=== PATIENT | male | born 1960 | race Caucasian/White ===

== ENCOUNTER → 2016-07-28 | Outpatient (CLI) | payer BC ==
[~2016-07-28] MED LIST: GADAVIST IV PRN; PARO1TAB27; RISP1TAB68
--- NOTE | 2016-07-28 15:53 | DIAGNOSTIC IMAGING REPORT ---
BONY ORBITS 3 VIEWS CLINICAL HISTORY: MRI clearance. FINDINGS: 3 views of the bony orbits are obtained. No prior studies are available for comparison at the time of dictation. There is no radiodense/metallic foreign body seen in the region of the bony orbits. The bony orbits are intact as imaged. The visualized paranasal sinuses and the mastoid air cells appear clear. The imaged calvarium appears intact. IMPRESSION: There is no radiodense/metallic foreign body seen in the region of the bony orbits. Electronically signed by: Benjy Moses M.D. 07/28/2016 3:52 PM Dictated Date/Time: 07/28/2016 3:51 PM
--- NOTE | 2016-07-28 20:20 | DIAGNOSTIC IMAGING REPORT ---
LEFT FOOT MRI WITH AND WITHOUT INTRAVENOUS CONTRAST HISTORY: Left foot mass TECHNIQUE: Multiplanar multisequence MRI of the left foot was performed both before and after the intravenous administration of contrast. COMPARISON STUDY: None. FINDINGS: Within the medial aspect of the plantar aponeurosis at the level of the tarsometatarsal joints there is a T1 hypointense, T2 isointense lobular lesion which demonstrates enhancement. This measures approximate 4.8 x 3.3 x 1.7 cm. This abuts and slightly displaces the adjacent plantar muscles but does not appear to invade into the muscles. No fracture or dislocation within the foot. There appears to be old postoperative changes within the medial aspect of the heel. This is demonstrate by a focal skin incision and underlying linear scar like areas. IMPRESSION: A 4.8 x 3.3 x 1.7 cm mass within the medial aspect of the plantar aponeurosis. This most likely represents plantar fibromatosis. Surgical excision can be performed for further evaluation. Electronically signed by: Raleigh Stroud M.D. 07/28/2016 8:18 PM Dictated Date/Time: 07/28/2016 8:10 PM
== END | disposition home or self-care (01) ==
LOC: C.MRI 15:18
PROVIDERS: ATTEND Podiatrist Foot & Ankle Surgery
DX: M77.32 Calcaneal spur, left foot (principal)

== ENCOUNTER 2017-10-16 04:56 | Observation (INO) | payer BC ==
[2017-10-15 08:58] VITALS: BMI 35.0
--- NOTE | 2017-10-15 12:11 | HISTORY & PHYSICAL EXAMINATION ---
DATE OF ADMISSION: 10/16/2017 HISTORY OF PRESENT ILLNESS: A 57-year-old male presents for a followup preoperative evaluation requesting surgery to his left foot. Pain is located in the foot and the heel. Severity of condition is graded as a 7 or an 8 on a 10 point scale. Pain described as aching, numbness, severe sharp soreness, and tingling. His condition was first noted several years ago. He notes associated signs and symptoms including aching, numbness, and tingling. He indicates that he has had heel pain in his foot for many years, even after having 2 surgeries done already on his foot for mass removal. Previously had surgery by Dr. Luna in 1998 and by me in 2001 and notes that he is unsure when the mass has started to return following the 2001 surgery. He has more pain by his foot by the end of the day. Past treatment and tests include MRIs, accommodative padding, accommodative shoes, oral medications, physical therapy, and surgery. We discussed the plantar spur, that it usually goes away with conservative treatment, but patient states "I just want this bur gone when the masses are removed." He is requesting removal of the painful skin over his heel as well. Due to severe discomfort, he would like to proceed with surgical intervention versus conservative care. PAST SURGICAL HISTORY: Multiple foot surgeries. PAST MEDICAL HISTORY: Arthritis. MEDICATIONS: None. ALLERGIES: No known medical allergies. FAMILY HISTORY: Diabetes and heart attack. SOCIAL HISTORY: Tobacco use: Relates a smoking history of 40 pack, 2 years. Patient admits to alcohol use, drinking described as social. REVIEW OF SYSTEMS: Unremarkable except chief complaint. PHYSICAL EXAMINATION: VITAL SIGNS: BP 120/78. Height 5 feet 10, weight 245 pounds, body mass index 35. CONSTITUTIONAL: Patient appears well-developed, well nourished. Good attention, body grooming, and habitus. HEENT: Head is normocephalic and atraumatic, without any gross head, face, or neck masses. Eyes: Conjunctival and pupils to light and accommodation normal. Ears, nose, mouth, and throat unremarkable. NECK: Supple. Trachea is midline, without any adenopathy or crepitance palpable. CARDIOVASCULAR: Normal S1 and S2, without murmur, gallops, rubs, clicks noted. Exam is normal. RESPIRATORY: Chest is symmetric. No scars are visible. No port or pacemaker is noted. Lungs are clear to auscultation bilaterally equal. GASTROINTESTINAL: Abdominal organs, bladder, and kidney show no abnormalities, masses, tenderness, or rigidity. LOWER EXTREMITY EXAMINATION: Vascular: Bilateral posterior tibial and dorsalis pedis pulses are palpable. Dermatologic: Inspection on palpation of plantar aspect, left arch, 4.3 x 2.5 cutaneous vascular lesions are observed. Plantar proximal aspect of left heel demonstrates lesions that are calloused, showing interruption of skin tension lines and exhibiting interruptions of skin lines. Neurological: Touch, pin, vibratory, and proprioception sensations are normal. Deep tendon reflexes normal. Musculoskeletal: Muscle tone is normal. Muscle strength is 5/5 in all groups tested. Inspection and palpation of bones, joints, and muscles show exostosis. First metatarsophalangeal joint shows evidence of range of motion limited in large dorsal medial eminence on the right. Examination of the heel shows moderate pain over the plantar medial aspect of the calcaneus on the left. Decreased ankle joint range of motion with the knee flexed and extended. LABORATORY DATA: Blood work on 07/21/2016 shows [place], CBC, and rheumatoid factors within normal limits. Sedimentation rate is 31. HLA-B27 is not detected. MRI of 08/29/2017 show there are no areas of marrow replacement to indicate neoplasm. There are no areas of edema to indicate outcome of fracture. Small Achilles insertional plantar calcaneal spurs, no evidence of tendinopathy, persistent 4.8 x 3 x 2 mm mass within the medial aspect of the plantar aponeurosis. Location of the signal characteristics are again suggestive of plantar fibromatosis. Biopsy could be performed for tissue confirmation. IMPRESSION: 1. Hallux limitus, right. 2. Heel spur syndrome, left. 3. Equinus bilaterally. 4. Plantar fibromatosis, left. 5. Skin lesions, benign, left. 6. Difficulty walking. 7. Status post excision of plantar mass with plantar fascia excision on the right by Dr. Luna in 1998 and excision of plantar mass with plantar fascia excision in 2001. PLAN: Surgical procedures to be performed: 1. Plantar fasciotomy with open heel spur resection to the left. 2. Excision of mass tumor in the mid foot, left x2. 3. Excision of benign lesion on the left heel. 4. Destruction of cutaneous vascular lesions, left foot. These would be performed under local with IV sedation as an outpatient at the hospital. Procedure, risks, and complications were fully reviewed with the patient. Consent form and foot diagram and illustration reviewed all in entirety. All the patient's questions were answered. Complications discussed in detail with the patient including pain, infection, swelling that may or may not be excessive, pins and needle feeling, numbness, metatarsalgia, excessive bleeding, delayed or nonhealing skin, enlarged scar, failure of the procedure, recurrence or worsening condition which may or may not require further surgery, adverse reaction to anesthesia, allergic reaction to suture or other implant material, loss of toe, foot, or leg, flail toe, stiff toe, short toe, elevated toe, transfer lesion or callus, peripheral neurovascular complications such as phlebitis, damage to nerves or vascular structures, significant chronic pain, chronic nerve pain or damage, general medical complications. Patient will be required to be nonweightbearing for a minimum of 3 weeks and not return to dress shoe for 6-12 weeks depending on the postop edema. Patient is aware this is an elective procedure and I recommend second opinion. Patient stated they understood. Consent form was signed with copy of foot diagram issued to the patient. Verbal and written postop instructions were given. Patient will be required to be nonweightbearing for a minimum of 3 weeks and not return to dress shoe for 6-12 weeks depending on the postop edema. Plantar proximal aspect of lesions on the left heel debridement to pinpoint bleeding, application of salicylic acid at the time of the preoperative visit. Also, at the time of the preoperative visit, prescriptions for Percocet and Keflex were dispensed.
[~2017-10-16] VITALS: Ht 177.8 cm; Wt 111.4 kg
[2017-10-16] VITALS (9 sets, daily range): BP systolic 101–139; BP diastolic 61–86; PULSE 60–89; TEMP 35.9–36.8; O2SAT 94–96; Ht 177.8 cm; Wt 111.4 kg
[~2017-10-16 04:56] MED LIST changes: -GADAVIST IV PRN; +LACTATED RINGER'S 1000ML 1,000 ML IV SCH; -PARO1TAB27; -RISP1TAB68
[2017-10-16 05:53] LABS: HEMATOCRIT 43.1 % (42-52); HEMOGLOBIN 15.2 g/dL (14.0-18.0); MEAN CELL VOLUME 91.3 fL (80-100); MEAN CORPUSCULAR HEMOGLOBIN 32.2 pg (25-34); MEAN PLATELET VOLUME 10.1 fL (7.4-10.4); PLATELET COUNT 211 K/uL (130-400); RED CELL DISTRIBUTION WIDTH CV 12.9 % (11.5-14.5); RED CELL DISTRIBUTION WIDTH SD 43.1 fL (36.4-46.3); WHITE BLOOD COUNT 7.65 K/uL (4.8-10.8)
[2017-10-16 05:57] LABS: MEAN CORPUSCULAR HGB CONC 35.3 g/dl (32-36)
[2017-10-16] MEDS ORDERED: LACTATED RINGER'S 1000ML 1,000 ML IV SCH (06:00)
[2017-10-16] MEDS ORDERED: CEFAZOLIN 2000MG IV PUSH 15 ML IV SCH (06:00)
[2017-10-16] MEDS ORDERED: ROPIVACAINE 0.5% 5 MG/ML 30 ML VIAL ONE (06:28)
[2017-10-16] MEDS ORDERED: MIDAZOLAM HCL 1 MG/ML 2ML VIAL ONE ×2 (06:37)
[2017-10-16] MEDS ORDERED: FENTANYL CITRATE INJ 50 MCG/1 ML 2 ML VIAL ONE ×3 (06:38→09:53)
--- NOTE | 2017-10-16 06:45 | History & Physical Bridge Note ---
H&P Re-Evaluation Bridge Note: I have examined the patient, reviewed the History & Physical and in the interval since the performance of the History & Physical I have noted the following changes of clinical significance: No changes noted
[2017-10-16] MEDS ORDERED: LIDOCAINE HCL 2% 2 ML VIAL (20MG/ML) ONE (07:47)
[2017-10-16] MEDS ORDERED: PROPOFOL IV EMULSION 10 MG/ML 20 ML VIAL ONE (07:47)
[2017-10-16] MEDS ORDERED: DEXAMETHASONE SOD INJ 4 MG/ML VIAL ONE (07:53)
[2017-10-16] MEDS ORDERED: IV FLUIDS COMPLETED PRN (08:30)
[2017-10-16] MEDS ORDERED: ONDANSETRON INJ 2 MG/ML 2 ML VIAL ONE (09:13)
[2017-10-16] MEDS ORDERED: ATROPINE SULFATE 0.1 MG/ML 5ML SYR IV PRN (09:15)
[2017-10-16] MEDS ORDERED: EpHEDrine SULFATE INJ 50 MG/ML AMP IV PRN (09:15)
[2017-10-16] MEDS ORDERED: ONDANSETRON INJ 2 MG/ML 2 ML VIAL IV PRN (09:15)
[2017-10-16] MEDS ORDERED: PHENYLEPHRINE 100MCG/ML 5ML SYR IV PRN (09:15)
[2017-10-16] MEDS ORDERED: GELATIN SPONGE 12-7MM ONE (09:17)
--- NOTE | 2017-10-16 10:01 | [facility] Post Operative Brief Note ---
Immediate Operative Summary Operative Date Oct 16, 2017. Pre-Operative Diagnosis 1. Plantarfascitis 2. Heel spur syndrome, left. 3. Equinus bilaterally. 4. Benign lesions >15 L 5. Tumor X2 L 4. Plantar fibromatosis, left. 5. Skin lesions, benign, left. Post-Operative Diagnosis same as above Procedure(s) Performed Plantar Fasciotomy with Open Heel Spur Resection Left, Excision Mass/Tumor Left Midfoot X2 , Partial excision cutaneous vasulcar Lesions Excision Left X5, Destruction of premalignant lesion Lower Extremity>[address] Godoy Belt Measurer Surgeon(s) none Estimated Blood Loss 8 ml Findings Consistent with Post-Op Diagnosis Specimens Permanent 1. planter fascia 2. calcaneous bone 3. cutaneous premalignant lesions 4. tumor Anesthesia Type General Regional
[2017-10-16] MEDS: HYDROmorphone INJ 0.5 MG/0.5 ML SYR IV PRN ×6 (10:11→10:36)
--- NOTE | 2017-10-16 11:19 | DIAGNOSTIC IMAGING REPORT ---
L FOOT MIN 3 VIEWS ROUTINE CLINICAL HISTORY: Postoperative evaluation. COMPARISON: Left foot fluoroscopic images October 16, 2017 and MRI of the left foot August 29, 2017. FINDINGS: Fine detail is diminished due to overlying bandages/cast. Tarsometatarsal joints are intact. There is no acute fracture. A surgical drain is in place. Note is made of a punctate radiodensity which projects over the plantar aspect of the left midfoot. Extensive posterior calcaneal spurring is noted. Postoperative findings within the plantar aspect of the left hindfoot and midfoot are noted. IMPRESSION: 1. Surgical drain in place. Punctate radiodensity projecting over the plantar aspect of the left midfoot. This may be on or within the patient could be correlated with surgical procedure. 2. No acute fracture. Electronically signed by: Nicolas Jauregui M.D. 10/16/2017 11:18 AM Dictated Date/Time: 10/16/2017 11:14 AM
--- NOTE | 2017-10-16 12:10 | DIAGNOSTIC IMAGING REPORT ---
L FOOT 2 VIEWS CLINICAL HISTORY: LT PLANTAR FASCIOTOMY AND MASS REMOVAL COMPARISON: None. DISCUSSION: 17 seconds image intensifier time for intraoperative evaluation. Expected soft tissue postoperative change. Images suggests resection heel spur. 2 images acquired. IMPRESSION: Heel spur resection. The above report was generated using voice recognition software. It may contain grammatical, syntax or spelling errors. Electronically signed by: Brian Patricio M.D. 10/16/2017 12:08 PM Dictated Date/Time: 10/16/2017 12:08 PM
--- NOTE | 2017-10-16 12:15 | Anesthesiology Progress Note ---
Anesthesia Post Op Note Date & Time Oct 16, 2017 at 12:05 Vital Signs Pain Intensity: 1 Vital Signs Past 12 Hours Date Time Temp Pulse Resp B/P (MAP) Pulse Ox O2 Delivery O2 Flow Rate FiO2 10/16/17 11:50 75 12 108/79 93 Nasal Cannula 2 10/16/17 11:40 72 14 123/68 94 Nasal Cannula 2 10/16/17 11:30 70 12 117/79 93 Nasal Cannula 2 10/16/17 11:20 72 16 128/77 92 Nasal Cannula 2 10/16/17 11:10 74 16 130/74 94 Nasal Cannula 2 10/16/17 11:00 68 19 110/74 94 Nasal Cannula 3 10/16/17 10:50 71 14 113/80 92 Nasal Cannula 3 10/16/17 10:40 84 14 134/86 91 Nasal Cannula 3 10/16/17 10:30 73 14 129/84 91 Nasal Cannula 3 10/16/17 10:20 87 16 131/89 93 Nasal Cannula 3 10/16/17 10:10 86 14 115/78 91 Nasal Cannula 3 10/16/17 10:04 36.8 93 14 147/88 92 Nasal Cannula 3 10/16/17 05:39 36.8 78 20 139/86 (103) 95 Room Air Notes Mental Status: alert / awake / arousable, participated in evaluation Pt Amnestic to Procedure: Yes Nausea / Vomiting: adequately controlled Pain: adequately controlled Airway Patency, RR, SpO2: stable & adequate BP & HR: stable & adequate Hydration State: stable & adequate Anesthetic Complications: no major complications apparent The patient was very comfortable in the PACU. H was given a total of 3 mg of dilaudid because he kept asking for more. His respiratory rate dropped to 6 and he slept for a couple of hours just waking up momentarily at lengthy intervals. I do not believe that he needs a SLOPE HOIST OPERATOR at this point but I instructed nursing to tell the floor that if he does need one I will write the orders for it. He was sent to the floor on 3 liters nasal cannula and a bedside pulse oximeter.
--- NOTE | 2017-10-16 13:18 | OPERATIVE REPORT ---
DATE OF OPERATION: 10/16/2017 PREOPERATIVE DIAGNOSES: 1. Heel spur syndrome, left. 2. Plantar fasciitis, left. 3. Tumor, mid foot, left x2. 4. Benign cutaneous vascular lesions, left. POSTOPERATIVE DIAGNOSES: Same. ANESTHESIA: General with regional field block performed by the anesthesia department. HEMOSTASIS: Pneumatic calf tourniquet inflated to 300 mmHg for a total tourniquet time 106 minutes. ESTIMATED BLOOD LOSS: 8 mL. MATERIALS: 2-0 and 3-0 Vicryls, 2-0 and 4-0 nylon, 5-0 PDS. INJECTABLES: None. FINDINGS: A large 2-lobulated tumor that had scarred into 1 large tumor mass. Large exostosis, plantar calcaneus with scarred in plantar fascia band, and cutaneous vascular lesions involving the epidermis and dermal layers only. HISTOPATHOLOGY: Tumor was sent, cutaneous vascular lesions sent, bone sent, and plantar fascia sent. PROCEDURES: 1. Excision of tumor, deep x2. 2. Plantar fasciotomy, left. 3. Open heel spur ostectomy, the calcaneus, left. 4. Partial lesion excision, benign lesions to the depth of 1.2 x 5. 5. Cutaneous or premalignant cutaneous vascular lesions. PROCEDURE: The patient was brought to the OR and placed on the OR table in supine position. Upon completion of general anesthesia, a regional field block was performed by the anesthesia department. The left foot and leg were scrubbed , prepped, and draped in the usual aseptic fashion. Prior to this, a well- padded calf tourniquet was applied to the left lower extremity. The extremity was scrubbed, prepped, and draped in the usual aseptic fashion. Attention was directed to the plantar calcaneus where medially between the interruption of skin tension lines and plantar surface of the skin, was carefully drawn out from preoperative x-rays 6 cm distal to the calcaneus. Incision was made directly medially, was carried down to the level of the prominent bone. The plantar fascia was quite scarred and the plantar fascia was cut and removed from the attachment to the calcaneus and sent to histopathology. It should be noted there was small amount of bone that was in this as well that was sent. Using a sagittal saw and osteotome and a mallet, an ostectomy was created in the calcaneus over the plantar medial tubercle of the calcaneus. Care was taken to preserve for any bony spicules, none were noted. Fluoroscan was used to examine postoperatively. There was no prominent bone remaining. At this time, the wound was copiously lavaged over this area and this area was sent to histopathology. Attention was then directed into 5 areas of cluster lesions around the foot cutaneous vascular lesions. Partial excision was performed in these areas for the purpose of biopsy and sent to the lab. It should be noted it only involved the epidermis and dermal layers, was not extending into the fat layer. These remaining areas of the cluster lesions were burned using a cautery and a smoke evacuator. These areas were packed with Gelfoam. Attention was then directed to the plantar medial mid foot where a curvilinear incision was made over the tumor. This was carried down and appeared to be 2 lobulated tumors; however we got down further and this was all scarred and appeared to be connected to the plantar fascia, was not involved in the fat of the muscular layer. This was sent to histopathology. Wound was copiously lavaged with normal saline. Closure began in the deep structures using 2-0 Vicryl. Superficial deep structures were closed using 2-0 nylon, 5-0 PDS and 2- 0 and 4-0 nylon. It should be noted, a 10 gauge drain was placed over the area. Dry sterile compressive dressings consisting of Adaptic, 4 x 4s, ABDs, Kerlix, Webril, and a well-padded BK splint was applied to the left lower extremity. The patient will be nonweightbearing immediately postop. I attest to the content of the Intraoperative Record and any orders documented therein. Any exceptions are noted below. LULUD
[2017-10-16] MEDS: OXYCODONE/ACETAMINOPHEN 5-325 TAB PO PRN (19:35)
[2017-10-17] VITALS (8 sets, daily range): BP systolic 115–128; BP diastolic 73–78; PULSE 69–83; TEMP 36.3–36.8; O2SAT 87–99
--- NOTE | 2017-10-17 07:57 | Anesthesiology Progress Note ---
Anesthesia Post Op Note Date & Time Oct 17, 2017 at 07:57 Vital Signs Pain Intensity: 5.0 Vital Signs Past 12 Hours Date Time Temp Pulse Resp B/P (MAP) Pulse Ox O2 Delivery O2 Flow Rate FiO2 10/17/17 07:39 Room Air 10/17/17 07:25 36.8 69 18 128/73 (91) 95 Room Air 10/17/17 06:28 78 99 Room Air 10/17/17 03:43 36.5 83 18 115/74 (88) 97 Nasal Cannula 2.0 10/17/17 01:00 96 Nasal Cannula 2.0 10/17/17 00:59 87 Room Air 10/16/17 23:34 Room Air 10/16/17 23:10 36.4 71 18 101/61 (74) 95 Room Air Notes Mental Status: alert / awake / arousable, participated in evaluation Pt Amnestic to Procedure: Yes Nausea / Vomiting: adequately controlled Pain: adequately controlled Airway Patency, RR, SpO2: stable & adequate BP & HR: stable & adequate Hydration State: stable & adequate Anesthetic Complications: no major complications apparent
--- NOTE | 2017-10-17 08:13 | Discharge Instructions ---
Discharge Instructions Date of Service Oct 17, 2017. Admission Reason for Admission: Left Foot Plantar Fibromatosis, Heel Spurt Syndrom Discharge Discharge Diagnosis / Problem: Ambulatory diffictulites Discharge Goals Goal(s): Decrease discomfort, Increase independence Activity Recommendations Activity Limitations: as noted below Lifting Limitations: no more than 5 pounds Exercise/Sports Limitations: none May Resume Sexual Activity: when tolerated Shower/Bathe: keep incision dry Driving or Machine Use: may not drive until released from surgical shoe Medications: * Resume previous medications unless instructed by your surgeon. * Take your medications as prescribed. Call our office ([phone]) at any time, if you experience severe pain that does not subside shortly after taking your pain medication. Activity: * Do not put any standing weight on your operated foot/ankle. Use the crutches or walker as instructed. Special Care: * Keep your bandage clean and dry. Do not remove your bandage unless otherwise instructed. A small amount of blood may appear on the bandage over the surgical site. Call our office ([phone]) if you bandage becomes blood-soaked or wet. * Elevate your operated foot/ankle on pillows, above the level of your heart, as often as possible during the first 2-3 days following surgery. Keep your knee flexed slightly with a pillow under your knee when you elevate your foot/ankle. * Apply a ice bag to your foot/ankle over the operative site for 20-30 minutes out of each hour while you are awake. Do not allow the ice bag to directly contact bare skin. * Avoid bumping or handling any pins visible in your toes. If any pin feels or appears loose, call the office ([phone]). * Take your oral temperature in the morning and at bedtime. Call our office ([phone]) if your temperature rises above 101 degrees Fahrenheit. Call your surgeon's office at ([phone]) for any problems or concerns such as excessive bleeding and/or pain unrelieved by your prescribed pain medications. If you have any questions, please do not hesitate to ask them. Avoid all tobacco products. If you need help to stop smoking, call [place]'s FREE QUITLINE at . This is a free call. Follow-up: Follow-up with Dr. Godoy . Current Hospital Diet Patient's current hospital diet: Regular Diet Discharge Diet Recommended Diet: Regular Diet Fluid Restriction: None Procedures Procedures Performed: Plantar Fasciotomy L, Partial calcanectomy with Open Heel Spur Resection Left, Excision Mass/Tumor Left Midfoot X2 , Partial excision cutaneous vasulcar Lesions Excision Left X5, Destruction of premalignant lesion Lower Extremity>15 Pending Studies Studies pending at discharge: no Medical Emergencies . Who to Call and When: Medical Emergencies: If at any time you feel your situation is an emergency, please call 911 immediately. . Non-Emergent Contact Non-Emergency issues call your: Primary Care Provider . "Provider Documentation" section prepared by Soledad Coronado. .
[2017-10-17] MEDS ORDERED: CEPH500C PO (08:17)
--- NOTE | 2017-10-17 08:53 | DISCHARGE SUMMARY ---
DIAGNOSES: 1. Status post left foot reconstructive surgery. 2. Difficulty ambulating. MEDICATIONS: Percocet 5.25. ALLERGIES: No known drug allergies. PROCEDURE: The patient was brought to the OR on 10/16/2017 and underwent a partial calcanectomy with a heel spur removal; excision of plantar fascia band, left; excision of tumors x2; excision of cutaneous vascular lesions on the left foot. The patient tolerated the procedure well. Postoperative day 1, the patient has difficulty ambulating nonweightbearing, unable to go up and down stairs. Pain is well controlled. PLAN: The patient is to be discharged to [facility] due to difficulties ambulating, unable to facilitate home postoperative recovery.
[2017-10-17] MEDS: OXYCODONE/ACETAMINOPHEN 5-325 TAB PO PRN (13:01)
== END 2017-10-17 16:12 ==
LOC: C.ACU 04:56 → C.3E 07:35 → ENRESERV 10:26
PROVIDERS: ADMIT Podiatrist Foot & Ankle Surgery; ATTEND Podiatrist Foot & Ankle Surgery
DX: M77.32 Calcaneal spur, left foot (principal); M72.2 Plantar fascial fibromatosis; B07.9 Viral wart, unspecified; F17.200 Nicotine dependence, unspecified, uncomplicated; E66.9 Obesity, unspecified; Z68.35 Body mass index [BMI] 35.0-35.9, adult